=== PATIENT | female | born 2000 | race African-American/Black ===

== ENCOUNTER 2020-02-22 16:23 | Emergency (ER) | payer OTHER ==
[~2020-02-22] VITALS: Ht 180.3 cm; Wt 116.7 kg
[2020-02-22 16:32] VITALS: BP 133/88
== END 2020-02-22 17:53 | disposition home or self-care (01) ==
LOC: ED 17:10
DX: M77.9 Enthesopathy, unspecified (principal); M25.521 Pain in right elbow; X58.XXXA Exposure to other specified factors, initial encounter; Y93.89 Activity, other specified; Y92.69 Other specified industrial and construction area as the place of occurrence of the external cause; Y99.8 Other external cause status
CPT/HCPCS: 99282

== ENCOUNTER 2020-03-09 07:16 | Emergency (ER) | payer OTHER ==
[~2020-03-09] VITALS: Ht 180.3 cm; Wt 115.1 kg
[2020-03-09 07:20] VITALS: BP 120/66
--- NOTE | 2020-03-09 07:56 | NUR ---
Patient given discharge instructions and they have confirmed that they understand the instructions. Patient ambulatory with steady gait.
== END 2020-03-09 07:57 | disposition home or self-care (01) ==
LOC: ED 07:54
DX: M77.8 Other enthesopathies, not elsewhere classified (principal); Z88.0 Allergy status to penicillin
CPT/HCPCS: 99282

== ENCOUNTER 2020-06-06 23:55 | Emergency (ER) | payer OTHER ==
[~2020-06-06] VITALS: Ht 180.3 cm; Wt 109.5 kg
[2020-06-07 00:01] VITALS: BP 131/73
== END 2020-06-07 00:33 | disposition home or self-care (01) ==
LOC: ED 06-07 00:04
DX: S76.012A Strain of muscle, fascia and tendon of left hip, initial encounter (principal); X58.XXXA Exposure to other specified factors, initial encounter; Y93.89 Activity, other specified; Y92.89 Other specified places as the place of occurrence of the external cause; Y99.8 Other external cause status
CPT/HCPCS: 99282